=== PATIENT | male | born 1955 | race Caucasian/White ===

== ENCOUNTER 2020-06-09 15:30 | Outpatient (REF) | payer MEDICARE, MEDICAID, SELFPAY ==
[2020-06-09 16:41] LABS: MANUAL DIFF FLAG NO
[2020-06-09 16:49] LABS: Basophils Percent Auto 0.6 % (0-2); Eosinophils Absolute Auto 0.3 X10*3/uL (0.0-0.4); Hematocrit 46.9 % (42-52); Hemoglobin 15.8 g/dl (14.0-18.0); Imm Gran Abs Auto 0.02 X10*3/uL (0.00-0.03); Imm Gran Pct Auto 0.3 % (0.0-0.4); Lymphocytes Absolute Auto 2.4 X10*3/uL (1.2-4.9); Lymphocytes Percent Auto 36.3 % (20-40); Mean Corpuscular HGB Conc 33.7 g/dl (31.0-36.0); Mean Corpuscular Volume 92.1 fL (80-98); Mean Platelet Volume 11.7 fL (9.4-12.4); Monocytes Absolute Auto 0.5 X10*3/uL (0.1-1.2); Monocytes Percent Auto 7.2 % (2-11); Neutrophils Absolute Auto 3.4 X10*3/uL (2.0-8.3); Neutrophils Percent Auto 51.6 % (45-73); Platelet Count 186 X10*3/uL (160-400); Red Blood Count 5.09 X10*6/uL (4.60-5.80); Red Cell Distribution Width 12.6 % (11.0-16.0); White Blood Count 6.5 X10*3/uL (4.8-10.8)
[2020-06-09 16:53] LABS: Prothrombin Time 11.7 SEC (10.8-13.0)
[2020-06-09 17:06] LABS: Alanine Aminotransferase 125 U/L (0-40); Albumin Level 4.4 g/dL (3.5-5.0); Alkaline Phosphatase 70 U/L (39-117); Aspartate Amino Transferase 77 U/L (5-37); Bilirubin Direct 0.2 mg/dL (0.0-0.5); Bilirubin Total 0.3 mg/dL (0.0-1.0); Iron 89 mcg/dL (45-160); Percent Iron Saturation 28 % (15-50); Total Iron Binding Capacity 314 mcg/dL (228-428); Total Protein 7.1 g/dL (6.5-8.0); Unsaturated Iron Binding 225 ug/dL
[2020-06-09 17:28] LABS: Ferritin 595 ng/mL (20-250)
[2020-06-10 18:41] LABS: Alpha 1 Anti-trypsin 161 mg/dL (83-199)
[2020-06-12 08:59] LABS: HBS Num1 0.81 mIU/mL (0-7.99); HBc Num1 0.04 S/CO (0.00-0.79); HBsAGNum1 0.19 S/CO (0.00-0.99); Hepatitis B Core Antibody Nonreactive (Nonreactive); Hepatitis B Surface Antigen Negative (Negative); ~Hepatitis B Surface Antibody NONREACTIVE (Nonreactive)
[2020-06-12 09:46] LABS: ~HepC Num1 0.05 S/CO (0.00-0.79); ~Hepatitis C Antibody Nonreactive (Nonreactive)
[2020-06-12 16:32] LABS: Mitochondrial Antibodies NEGATIVE (NEGATIVE)
[2020-06-12 18:27] LABS: Anti Nuclear Antibody Screen NEGATIVE (NEGATIVE)
[2020-06-13 15:27] LABS: Smooth Muscle Antibody <20
== END 2020-06-09 15:31 | disposition home or self-care (01) ==
LOC: HO.LAB 15:30
PROVIDERS: Visit Provider Internal Medicine
DX: R94.5 Abnormal results of liver function studies (principal); K76.0 Fatty (change of) liver, not elsewhere classified
CPT/HCPCS: 36415; 80076; 82103; 82728; 83540; 85025; 85610; 86038; 86039; 86255; 86256; 86704; 86706; 86803; 87340

== ENCOUNTER 2021-01-10 13:24 | Outpatient (REF) | payer MEDICARE, MEDICAID, SELFPAY ==
[2021-01-10 14:37] LABS: Alanine Aminotransferase 62 U/L (0-40); Albumin Level 4.3 g/dL (3.5-5.0); Alkaline Phosphatase 79 U/L (39-117); Aspartate Amino Transferase 39 U/L (5-37); Bilirubin Direct 0.2 mg/dL (0.0-0.5); Bilirubin Total 0.4 mg/dL (0.0-1.0); Total Protein 7.1 g/dL (6.5-8.0)
== END 2021-01-10 13:25 | disposition home or self-care (01) ==
LOC: HO.LAB 13:24
PROVIDERS: PCP Family Medicine; Visit Provider Internal Medicine
DX: R94.5 Abnormal results of liver function studies (principal); K76.0 Fatty (change of) liver, not elsewhere classified
CPT/HCPCS: 36415; 80076

== ENCOUNTER 2021-06-05 12:35 | Outpatient (REF) | payer MEDICARE, MEDICAID, SELFPAY ==
[2021-06-05 13:22] LABS: Alanine Aminotransferase 106 U/L (0-40); Albumin Level 4.1 g/dL (3.5-5.0); Alkaline Phosphatase 80 U/L (39-117); Aspartate Amino Transferase 64 U/L (5-37); Bilirubin Direct < 0.2 mg/dL (0.0-0.5); Bilirubin Total 0.4 mg/dL (0.0-1.0); Total Protein 6.9 g/dL (6.5-8.0)
== END 2021-06-05 12:36 | disposition home or self-care (01) ==
LOC: HO.LAB 12:35
PROVIDERS: PCP Family Medicine; Visit Provider Internal Medicine
DX: R94.5 Abnormal results of liver function studies (principal); K76.0 Fatty (change of) liver, not elsewhere classified
CPT/HCPCS: 36415; 80076

== ENCOUNTER 2021-06-18 13:42 | Outpatient (REF) | payer MEDICARE, MEDICAID, SELFPAY ==
[2021-06-18 14:06] LABS: MANUAL DIFF FLAG NO
[2021-06-18 14:27] LABS: Basophils Absolute Auto 0.1 X10*3/uL (0.0-0.2); Basophils Percent Auto 0.6 % (0-2); Eosinophils Absolute Auto 0.3 X10*3/uL (0.0-0.4); Eosinophils Percent Auto 3.5 % (0-4); Hematocrit 50.6 % (42-52); Hemoglobin 16.8 g/dl (14.0-18.0); Imm Gran Abs Auto 0.03 X10*3/uL (0.00-0.03); Imm Gran Pct Auto 0.4 % (0.0-0.4); Lymphocytes Absolute Auto 3.2 X10*3/uL (1.2-4.9); Lymphocytes Percent Auto 37.4 % (20-40); Mean Corpuscular HGB Conc 33.2 g/dl (31.0-36.0); Mean Corpuscular Hemoglobin 30.5 pg (27.0-33.0); Mean Platelet Volume 11.6 fL (9.4-12.4); Monocytes Absolute Auto 0.7 X10*3/uL (0.1-1.2); Neutrophils Absolute Auto 4.2 X10*3/uL (2.0-8.3); Neutrophils Percent Auto 50.1 % (45-73); Platelet Count 210 X10*3/uL (160-400); Red Cell Distribution Width 12.9 % (11.0-16.0); White Blood Count 8.5 X10*3/uL (4.8-10.8)
[2021-06-18 14:31] LABS: Prothrombin Time 11.4 SEC (9.9-13.0)
[2021-06-18 14:33] LABS: Partial Thromboplastin Time 40.1 SEC (24.1-38.0)
[2021-06-18 14:48] LABS: Estimated Average Glucose 114 mg/dL; Hemoglobin A1C 150.2425 umol/L; Hemoglobin A1c % 5.6 %
[2021-06-18 15:00] LABS: Alanine Aminotransferase 107 U/L (0-40); Albumin Level 4.4 g/dL (3.5-5.0); Alkaline Phosphatase 86 U/L (39-117); Anion Gap 13 (12-20); Aspartate Amino Transferase 60 U/L (5-37); Bilirubin Direct 0.2 mg/dL (0.0-0.5); Bilirubin Total 0.4 mg/dL (0.0-1.0); Blood Urea Nitrogen 18 mg/dL (9-16); Calcium 10.4 mg/dL (8.4-10.2); Carbon Dioxide 29 mmol/L (22-29); Chloride 105 mmol/L (96-108); Estimated Glomerular Filt Rate > 60; Glucose Random 126 mg/dL (60-115); Potassium 5.1 mmol/L (3.3-5.1); Sodium 142 mmol/L (135-145); Total Protein 7.5 g/dL (6.5-8.0)
== END 2021-06-18 13:43 | disposition home or self-care (01) ==
LOC: HO.LAB 13:42
PROVIDERS: PCP Family Medicine; Visit Provider Internal Medicine
DX: R79.89 Other specified abnormal findings of blood chemistry (principal); K76.0 Fatty (change of) liver, not elsewhere classified
CPT/HCPCS: 36415; 80048; 80076; 83036; 85025; 85610; 85730

== ENCOUNTER 2021-06-25 07:49 | Day surgery (SDC) | payer MEDICARE, MEDICAID, SELFPAY ==
[2021-06-25] VITALS (7 sets, daily range): BP systolic 110–175; BP diastolic 57–96; PULSE 57–70; RESP 16–20; TEMP 36.2–36.4; O2SAT 95–99; BMI 34.7
--- NOTE | ~2021-06-25 | US_ITS ---
EXAMINATION: US GUIDED LIVER BIOPSY CLINICAL INFORMATION: Fatty liver. Elevated liver function tests. COMPARISON: Previous abdominal ultrasound November 2018 TECHNIQUE: Procedure and risks and benefits including bleeding and infection were discussed with the patient and informed consent was obtained. The right upper quadrant was prepped and draped in the usual sterile fashion. The skin and soft tissues were anesthetized with 1% lidocaine plain. Using ultrasound guidance and a coaxial system, access to the right lobe of the liver was obtained. Four 20-gauge core biopsies were obtained. There was no complication. Patient received Versed 1 mg and fentanyl 50 mcg intravenously during the procedure. Total sedation time was 13 minutes. Continuous hemodynamic monitoring was provided by a registered nurse under my direct supervision. FINDINGS: Liver echotexture is slightly increased. No fluid collection or hematoma post liver biopsy is seen. US/US biopsy liver IMPRESSION: Ultrasound-guided liver biopsy.
[2021-06-25 08:01] LABS: MANUAL DIFF FLAG NO
[2021-06-25 08:03] LABS: Basophils Percent Auto 0.6 % (0-2); Eosinophils Absolute Auto 0.3 X10*3/uL (0.0-0.4); Hematocrit 47.4 % (42-52); Hemoglobin 16.1 g/dl (14.0-18.0); Imm Gran Abs Auto 0.01 X10*3/uL (0.00-0.03); Imm Gran Pct Auto 0.1 % (0.0-0.4); Lymphocytes Absolute Auto 2.8 X10*3/uL (1.2-4.9); Lymphocytes Percent Auto 39.6 % (20-40); Mean Corpuscular Hemoglobin 31.6 pg (27.0-33.0); Mean Corpuscular Volume 92.9 fL (80-98); Mean Platelet Volume 11.7 fL (9.4-12.4); Monocytes Absolute Auto 0.6 X10*3/uL (0.1-1.2); Monocytes Percent Auto 7.9 % (2-11); Neutrophils Absolute Auto 3.3 X10*3/uL (2.0-8.3); Neutrophils Percent Auto 47.8 % (45-73); Platelet Count 163 X10*3/uL (160-400); Red Cell Distribution Width 12.7 % (11.0-16.0)
[2021-06-25 09:29] LABS: Partial Thromboplastin Time 40.3 SEC (24.1-38.0); Prothrombin Time 10.8 SEC (9.9-13.0)
--- NOTE | 2021-06-25 10:32 | HO.RADPN ---
RADIOLOGY Narrative Narrative: Rigth lobe liver biopsy using coaxial system. 4 20g specimens obtained.
[2021-06-25] MEDS: Lidocaine HCl 1 % MPF 5 ML VIAL SUBCUT (10:36)
== END 2021-06-25 12:45 | disposition home or self-care (01) ==
PROVIDERS: Radiology Diagnostic Radiology; PCP Family Medicine; Visit Provider Internal Medicine
DX: K76.0 Fatty (change of) liver, not elsewhere classified (principal); R79.89 Other specified abnormal findings of blood chemistry; K75.81 Nonalcoholic steatohepatitis (NASH); K74.00 Hepatic fibrosis, unspecified; I10 Essential (primary) hypertension; F41.1 Generalized anxiety disorder; Z79.899 Other long term (current) drug therapy
CPT/HCPCS: 36415; 47000; 76942; 85025; 85610; 85730; 88307; 88313; J2250; J3010

== ENCOUNTER 2021-12-11 13:39 | Outpatient (REF) | payer OTHER, MEDICAID, SELFPAY ==
[2021-12-11 14:48] LABS: Alanine Aminotransferase 64 U/L (0-40); Albumin Level 4.1 g/dL (3.5-5.0); Alkaline Phosphatase 86 U/L (39-117); Aspartate Amino Transferase 58 U/L (5-37); Bilirubin Direct 0.2 mg/dL (0.0-0.5); Bilirubin Total 0.4 mg/dL (0.0-1.0); Total Protein 7.2 g/dL (6.5-8.0)
== END 2021-12-11 13:40 | disposition home or self-care (01) ==
LOC: HO.LAB 13:39
PROVIDERS: PCP Family Medicine; Visit Provider Internal Medicine
DX: R79.89 Other specified abnormal findings of blood chemistry (principal); K76.0 Fatty (change of) liver, not elsewhere classified
CPT/HCPCS: 36415; 80076

== ENCOUNTER 2022-03-06 13:14 | Outpatient (REF) | payer OTHER, SELFPAY ==
[2022-03-06 14:41] LABS: Alanine Aminotransferase 63 U/L (0-40); Albumin Level 4.2 g/dL (3.5-5.0); Alkaline Phosphatase 85 U/L (39-117); Aspartate Amino Transferase 42 U/L (5-37); Bilirubin Direct 0.2 mg/dL (0.0-0.5); Bilirubin Total 0.5 mg/dL (0.0-1.0); Total Protein 7.1 g/dL (6.5-8.0)
== END 2022-03-06 13:15 | disposition home or self-care (01) ==
LOC: HO.LAB 13:14
PROVIDERS: Visit Provider Internal Medicine
DX: R79.89 Other specified abnormal findings of blood chemistry (principal); K76.0 Fatty (change of) liver, not elsewhere classified
CPT/HCPCS: 36415; 80076

== ENCOUNTER 2022-06-12 14:06 | Outpatient (REF) | payer OTHER, SELFPAY ==
[2022-06-12 15:12] LABS: Alanine Aminotransferase 65 U/L (0-40); Albumin Level 4.2 g/dL (3.5-5.0); Alkaline Phosphatase 92 U/L (39-117); Aspartate Amino Transferase 43 U/L (5-37); Bilirubin Direct < 0.2 mg/dL (0.0-0.5); Bilirubin Total 0.2 mg/dL (0.0-1.0); Total Protein 7.5 g/dL (6.5-8.0)
== END 2022-06-12 14:07 | disposition home or self-care (01) ==
LOC: HO.LAB 14:06
PROVIDERS: PCP Family Medicine; Visit Provider Internal Medicine
DX: K76.0 Fatty (change of) liver, not elsewhere classified (principal); R79.89 Other specified abnormal findings of blood chemistry
CPT/HCPCS: 36415; 80076

== ENCOUNTER 2022-12-10 13:31 | Outpatient (REF) | payer OTHER, SELFPAY ==
[2022-12-10 13:48] LABS: MANUAL DIFF FLAG NO
[2022-12-10 14:06] LABS: Basophils Absolute Auto 0.1 X10*3/uL (0.0-0.2); Basophils Percent Auto 0.9 % (0-2); Eosinophils Absolute Auto 0.2 X10*3/uL (0.0-0.4); Eosinophils Percent Auto 3.2 % (0-4); Hematocrit 44.4 % (42.0-52.0); Hemoglobin 15.2 g/dl (14.0-18.0); Imm Gran Abs Auto 0.05 X10*3/uL (0.00-0.03); Imm Gran Pct Auto 0.7 % (0.0-0.4); Lymphocytes Absolute Auto 2.8 X10*3/uL (1.2-4.9); Lymphocytes Percent Auto 40.9 % (20-40); Mean Corpuscular HGB Conc 34.2 g/dl (31.0-36.0); Mean Corpuscular Hemoglobin 31.1 pg (27.0-33.0); Mean Platelet Volume 11.2 fL (9.4-12.4); Monocytes Absolute Auto 0.5 X10*3/uL (0.1-1.2); Neutrophils Absolute Auto 3.2 x10*3/uL (2.0-8.3); Neutrophils Percent Auto 47.3 % (45-73); Platelet Count 185 X10*3/uL (160-400); Red Blood Count 4.88 X10*6/uL (4.60-5.80); White Blood Count 6.8 X10*3/uL (4.8-10.8)
[2022-12-10 14:33] LABS: Alanine Aminotransferase 32 U/L (0-40); Albumin Level 4.1 g/dL (3.5-5.0); Alkaline Phosphatase 71 U/L (39-117); Aspartate Amino Transferase 36 U/L (5-37); Bilirubin Direct 0.1 mg/dL (0.0-0.5); Bilirubin Total 0.4 mg/dL (0.0-1.0); Total Protein 6.6 g/dL (6.5-8.0)
[2022-12-12 13:03] LABS: Alpha Fetoprotein 3.9 ng/mL (<6.1)
[2022-12-16 00:44] LABS: FIB-ALT 25 U/L (9-46); FIB-Alpha-2-Macroglobulin 267 mg/dL (106-279); FIB-Apolipoprotein A1 162 mg/dL (94-176); FIB-GGT 16 U/L (3-70); FIB-Haptoglobin 44 mg/dL (43-212); FIB-Total Bilirubin 0.3 mg/dL (0.2-1.2); Liver Fibrosis Score 0.39; Liver Fibrosis Stage F1-F2; Nec Inflam Act Grade A0; Nec Inflam Act Score 0.13
== END 2022-12-10 13:32 | disposition home or self-care (01) ==
LOC: HO.LAB 13:31
PROVIDERS: Visit Provider Internal Medicine
DX: K76.0 Fatty (change of) liver, not elsewhere classified (principal); R94.5 Abnormal results of liver function studies; K74.00 Hepatic fibrosis, unspecified
CPT/HCPCS: 36415; 80076; 81596; 82105; 85025; 85610

== ENCOUNTER 2023-01-10 10:00 | Outpatient (REF) | payer OTHER, SELFPAY ==
--- NOTE | ~2023-01-10 | US_ITS ---
EXAMINATION: US COMPLETE ABDOMEN WITH LIVER ELASTOGRAPHY CLINICAL INFORMATION: COMPARISON: None available. TECHNIQUE: Real-time imaging of the abdominal viscera. Noninvasive ultrasound liver fibrosis assessment is performed using Al ElastPQ point quantification shear wave elastography (2D-SWE) with a C5-2 MHz transducer. Multiple elastography samples are obtained. FINDINGS: PANCREAS: Not well visualized due to bowel gas ABDOMINAL AORTA: Not well visualized due to bowel gas INFERIOR VENA CAVA: Visualized portions are normal. LIVER: Liver echotexture is increased. Liver size and contour is normal. No focal lesion or intrahepatic biliary duct dilatation. The right lobe measures 13.6 cm in length. The left lobe measures 11.6 cm in length. Portal flow is normal/hepatopedal Shear wave liver elastography median stiffness is 2.03 m/s (reference: normal median stiffness is 1.3 m/s or less). IQR/median stiffness to assess sampling precision is 0.08 (reference: good quality data set is IQR/median stiffness of 0.15 or less). GALLBLADDER: Normal. The gallbladder is physiologically distended without evidence of stones, sludge, polyps, wall thickening or pericholecystic fluid. COMMON BILE DUCT: Normal in caliber measuring 0.5 cm in diameter. RIGHT KIDNEY: Normal. No hydronephrosis. No renal calculi or focal parenchymal lesions. The kidney measures 10 cm in maximum dimension. LEFT KIDNEY: There is a 7 x 9 mm cyst in the midpole. No hydronephrosis. No renal calculi or other focal parenchymal lesions. The kidney measures 10.6 cm in maximum dimension. SPLEEN: Normal. The spleen measures 9 cm in maximum dimension. FREE FLUID: None. US/US abdomen comp w elastography IMPRESSION: 1. Impression: Echogenic liver. Small left renal cyst. Limited visualization of the pancreas and aorta. 2. Liver elastography: Adequate liver sampling. Increased liver stiffness suggestive of advanced chronic liver disease. REFERENCE: Society of Radiologists in Ultrasound Liver Stiffness Thresholds (2020): LIVER STIFFNESS THRESHOLDS: *Liver Stiffness equal or less than 1.3 m/s: High probability of being normal. *Liver Stiffness less than 1.7 m/s: In the absence of other known clinical signs, rules out compensated advanced chronic liver disease. *Liver Stiffness 1.7-2.1 m/s: Suggestive of compensated advanced chronic liver disease but need further test for confirmation. *Liver Stiffness over 2.1 m/s: Rules in compensated advanced chronic liver disease. *Liver Stiffness over 2.4 m/s: Suggestive of clinically significant portal hypertension. QUALITY OF DATA SET: *IQR/Median value equal or less than 0.15 implies a quality data set. *IQR/Median value over 0.15 implies a poor quality data set. SIGNIFICANT CHANGE FROM PRIOR EXAM: Significant change if liver stiffness measurement is 10% or greater from prior exam. OTHER CONSIDERATIONS: The stage of liver fibrosis may be overestimated in the setting of acute hepatitis, liver inflammation, elevated liver function tests, hepatic vascular congestion, obstructive cholestasis, non-fasting state, and infiltrative diseases such as amyloidosis and lymphoma. In some patients with NAFLD, the liver stiffness thresholds for compensated advanced chronic liver disease may be lower. In causes other than viral hepatitis and NAFLD, liver stiffness thresholds are not well established.
== END 2023-01-10 10:01 | disposition home or self-care (01) ==
LOC: HO.US 10:00
PROVIDERS: PCP Internal Medicine; Visit Provider Internal Medicine
DX: K76.0 Fatty (change of) liver, not elsewhere classified (principal); R94.5 Abnormal results of liver function studies; K74.00 Hepatic fibrosis, unspecified
CPT/HCPCS: 76705; 76981

== ENCOUNTER 2023-09-30 13:56 | Outpatient (REF) | payer OTHER, SELFPAY ==
[2023-09-30 14:18] LABS: MANUAL DIFF FLAG NO
[2023-09-30 15:15] LABS: Basophils Absolute Auto 0.1 X10*3/uL (0.0-0.2); Basophils Percent Auto 0.7 % (0-2); Eosinophils Absolute Auto 0.2 X10*3/uL (0.0-0.4); Hematocrit 44.5 % (42.0-52.0); Hemoglobin 14.9 g/dl (14.0-18.0); Imm Gran Abs Auto 0.02 X10*3/uL (0.00-0.03); Imm Gran Pct Auto 0.3 % (0.0-0.4); Lymphocytes Absolute Auto 2.8 X10*3/uL (1.2-4.9); Mean Corpuscular HGB Conc 33.5 g/dl (31.0-36.0); Mean Corpuscular Hemoglobin 31.1 pg (27.0-33.0); Mean Corpuscular Volume 92.9 fL (80.0-98.0); Mean Platelet Volume 11.7 fL (9.4-12.4); Monocytes Absolute Auto 0.5 X10*3/uL (0.1-1.2); Monocytes Percent Auto 7.3 % (2-11); Neutrophils Absolute Auto 3.5 x10*3/uL (2.0-8.3); Neutrophils Percent Auto 49.7 % (45-73); Platelet Count 163 X10*3/uL (160-400); Red Blood Count 4.79 X10*6/uL (4.60-5.80); White Blood Count 7.1 X10*3/uL (4.8-10.8)
[2023-09-30 15:47] LABS: C Reactive Protein 2.38 mg/dL (< or = 0.50)
[2023-09-30 16:38] LABS: Erythrocyte Sedimentation Rate 22 MM/HR (0-15)
== END 2023-09-30 13:57 | disposition home or self-care (01) ==
LOC: HO.LAB 13:56
PROVIDERS: PCP Family Medicine; Visit Provider Family Medicine
DX: R10.32 Left lower quadrant pain (principal)
CPT/HCPCS: 36415; 85025; 85652; 86140

== ENCOUNTER 2023-12-24 14:00 | Outpatient (REF) | payer OTHER, SELFPAY ==
[2023-12-24 14:12] LABS: MANUAL DIFF FLAG NO
[2023-12-24 15:17] LABS: Basophils Absolute Auto 0.1 X10*3/uL (0.0-0.2); Basophils Percent Auto 0.7 % (0-2); Eosinophils Absolute Auto 0.4 X10*3/uL (0.0-0.4); Eosinophils Percent Auto 4.4 % (0-4); Hematocrit 46.8 % (42.0-52.0); Hemoglobin 15.9 g/dl (14.0-18.0); Imm Gran Abs Auto 0.02 X10*3/uL (0.00-0.03); Imm Gran Pct Auto 0.2 % (0.0-0.4); Lymphocytes Absolute Auto 2.5 X10*3/uL (1.2-4.9); Lymphocytes Percent Auto 30.6 % (20-40); Mean Corpuscular Hemoglobin 31.2 pg (27.0-33.0); Mean Corpuscular Volume 91.9 fL (80.0-98.0); Mean Platelet Volume 11.4 fL (9.4-12.4); Monocytes Absolute Auto 0.5 X10*3/uL (0.1-1.2); Monocytes Percent Auto 6.3 % (2-11); Neutrophils Absolute Auto 4.7 x10*3/uL (2.0-8.3); Neutrophils Percent Auto 57.8 % (45-73); Platelet Count 210 X10*3/uL (160-400); Red Blood Count 5.09 X10*6/uL (4.60-5.80); Red Cell Distribution Width 12.8 % (11.0-16.0); White Blood Count 8.2 X10*3/uL (4.8-10.8)
[2023-12-24 15:22] LABS: INTERNATIONAL NORM RATIO 0.9 (0.9-1.1); Prothrombin Time 11.1 SEC (11.1-13.3)
[2023-12-24 15:40] LABS: Alanine Aminotransferase 17 U/L (0-40); Albumin Level 4.5 g/dL (3.5-5.0); Alkaline Phosphatase 73 U/L (39-117); Aspartate Amino Transferase 22 U/L (5-37); Bilirubin Direct 0.1 mg/dL (0.0-0.5); Bilirubin Total 0.4 mg/dL (0.0-1.0); Total Protein 7.9 g/dL (6.5-8.0)
[2023-12-25 13:33] LABS: Alpha Fetoprotein 2.8 ng/mL (<6.1)
[2024-01-03 18:19] LABS: FIB-ALT 15 U/L (9-46); FIB-Alpha-2-Macroglobulin 308 mg/dL (106-279); FIB-Apolipoprotein A1 184 mg/dL (94-176); FIB-GGT 16 U/L (3-70); FIB-Haptoglobin 52 mg/dL (43-212); FIB-Total Bilirubin 0.4 mg/dL (0.2-1.2); Liver Fibrosis Score 0.43; Liver Fibrosis Stage F1-F2; Nec Inflam Act Grade A0; Nec Inflam Act Score 0.06
== END 2023-12-24 14:01 | disposition home or self-care (01) ==
LOC: HO.LAB 14:00
PROVIDERS: PCP Family Medicine; Visit Provider Internal Medicine
DX: K76.0 Fatty (change of) liver, not elsewhere classified (principal); K74.00 Hepatic fibrosis, unspecified
CPT/HCPCS: 36415; 80076; 81596; 82105; 85025; 85610

== ENCOUNTER 2024-01-07 07:37 | Outpatient (REF) | payer OTHER, SELFPAY ==
--- NOTE | ~2024-01-07 | US_ITS ---
EXAMINATION: US COMPLETE ABDOMEN WITH LIVER ELASTOGRAPHY CLINICAL INFORMATION: Fatty liver and hepatic fibrosis. COMPARISON: Abdominal ultrasound dated 01/10/2023. TECHNIQUE: Real-time imaging of the abdominal viscera. Noninvasive ultrasound liver fibrosis assessment is performed using Al ElastPQ point quantification shear wave elastography (2D-SWE) with a C5-2 MHz transducer. Multiple elastography samples are obtained. FINDINGS: PANCREAS: Largely obscured by overlapping bowel gas. ABDOMINAL AORTA: The proximal and distal aortic segments are normal in caliber. The mid segment is obscured by overlapping bowel gas. INFERIOR VENA CAVA: Visualized portions are normal. LIVER: The liver demonstrates normal size, contour and slightly increased echogenicity. No focal lesion or intrahepatic biliary duct dilatation. The right lobe measures 14.1 cm in length. The left lobe measures 12.2 cm in length. Portal flow is towards the liver (hepatopetal). Shear wave liver elastography median stiffness is 1.51 m/s (reference: normal median stiffness is 1.3 m/s or less). IQR/median stiffness to assess sampling precision is 0.06 (reference: good quality data set is IQR/median stiffness of 0.15 or less). GALLBLADDER: Normal. The gallbladder is physiologically distended without evidence of stones, sludge, polyps, wall thickening or pericholecystic fluid. COMMON BILE DUCT: Normal in caliber measuring 0.6 cm in diameter. RIGHT KIDNEY: Normal. No hydronephrosis. No renal calculi or focal parenchymal lesions. The kidney measures 10.4 cm in maximum dimension. LEFT KIDNEY: At the interpolar aspect, a 1.0 cm benign, simple cyst is seen. At the lower pole, a 1.8 cm benign, simple cyst is seen. These require no imaging follow-up. No hydronephrosis. No renal calculi or focal parenchymal lesions. The kidney measures 11.1 cm in maximum dimension. SPLEEN: Normal. The spleen measures 9.6 cm in maximum dimension. FREE FLUID: None. US/US abdomen comp w elastography IMPRESSION: 1. There is slight generalized increase in hepatic echotexture, consistent with fatty infiltration or hepatocellular disease. Please correlate clinically. No focal hepatic mass or intrahepatic biliary dilatation is seen. 2. Liver elastography: In the absence of other known clinical signs, measurements rule out compensated advanced chronic liver disease. If there are known clinical signs, further testing may be needed for confirmation. 3. Technically limited ultrasound examination of the pancreas and the abdominal great vessels. REFERENCE: Society of Radiologists in Ultrasound Liver Stiffness Thresholds (2020): LIVER STIFFNESS THRESHOLDS: *Liver Stiffness equal or less than 1.3 m/s: High probability of being normal. *Liver Stiffness less than 1.7 m/s: In the absence of other known clinical signs, rules out compensated advanced chronic liver disease. *Liver Stiffness 1.7-2.1 m/s: Suggestive of compensated advanced chronic liver disease but need further test for confirmation. *Liver Stiffness over 2.1 m/s: Rules in compensated advanced chronic liver disease. *Liver Stiffness over 2.4 m/s: Suggestive of clinically significant portal hypertension. QUALITY OF DATA SET: *IQR/Median value equal or less than 0.15 implies a quality data set. *IQR/Median value over 0.15 implies a poor quality data set. SIGNIFICANT CHANGE FROM PRIOR EXAM: Significant change if liver stiffness measurement is 10% or greater from prior exam. OTHER CONSIDERATIONS: The stage of liver fibrosis may be overestimated in the setting of acute hepatitis, liver inflammation, elevated liver function tests, hepatic vascular congestion, obstructive cholestasis, non-fasting state, and infiltrative diseases such as amyloidosis and lymphoma. In some patients with NAFLD, the liver stiffness thresholds for compensated advanced chronic liver disease may be lower. In causes other than viral hepatitis and NAFLD, liver stiffness thresholds are not well established.
== END 2024-01-07 07:38 | disposition home or self-care (01) ==
LOC: HO.US 07:37
PROVIDERS: PCP Family Medicine; Visit Provider Internal Medicine
DX: K76.0 Fatty (change of) liver, not elsewhere classified (principal); K74.00 Hepatic fibrosis, unspecified
CPT/HCPCS: 76700; 76981

== ENCOUNTER 2024-12-29 13:50 | Outpatient (REF) | payer OTHER, SELFPAY ==
[2024-12-29 14:13] LABS: MANUAL DIFF FLAG NO
[2024-12-29 14:50] LABS: Basophils Absolute Auto 0.1 X10*3/uL (0.0-0.2); Basophils Percent Auto 0.8 % (0-2); Eosinophils Absolute Auto 0.2 X10*3/uL (0.0-0.4); Eosinophils Percent Auto 3.1 % (0-4); Hematocrit 45.1 % (42.0-52.0); Hemoglobin 15.1 g/dl (14.0-18.0); Imm Gran Abs Auto 0.02 X10*3/uL (0.00-0.03); Imm Gran Pct Auto 0.3 % (0.0-0.4); Lymphocytes Absolute Auto 2.3 X10*3/uL (1.2-4.9); Lymphocytes Percent Auto 35.2 % (20-40); Mean Corpuscular HGB Conc 33.5 g/dl (31.0-36.0); Mean Corpuscular Hemoglobin 30.7 pg (27.0-33.0); Mean Corpuscular Volume 91.7 fL (80.0-98.0); Mean Platelet Volume 11.4 fL (9.4-12.4); Monocytes Absolute Auto 0.4 X10*3/uL (0.1-1.2); Monocytes Percent Auto 6.8 % (2-11); Neutrophils Absolute Auto 3.5 x10*3/uL (2.0-8.3); Neutrophils Percent Auto 53.8 % (45-73); Platelet Count 190 X10*3/uL (160-400); Red Blood Count 4.92 X10*6/uL (4.60-5.80); Red Cell Distribution Width 12.7 % (11.0-16.0); White Blood Count 6.5 X10*3/uL (4.8-10.8)
[2024-12-29 14:54] LABS: INTERNATIONAL NORM RATIO 0.9 (0.9-1.1); Prothrombin Time 10.7 SEC (10.9-12.4)
--- OUTSIDE RECORDS SUMMARY | 2024-12-29 15:06 | XMS_ITS | Clinical Summary ---
Author Organization [facility] Address [address] [place] [address] Care Team Providers Care Inventory Manager Name Role Phone Unavailable Primary Care Provider Unavailabl e Allergies No known active allergies Medications Multiple Vitamins-Minera ls (MULTIVITAMIN & MINERAL PO) Active lisinopril 40 MG tablet Take 1 tablet by mouth at bed time. Active traMADol (Ultram) 50 MG tablet Take 50 mg by mouth every 12 (twelve) hours if needed. 03/14/2023 Active ursodiol (Actigall) 500 MG tablet TAKE TWO TABLETS BY MOUTH EVERY MORNING & TAKE ONE TABLET BY MOUTH EVERY EVENING 03/24/2023 Active amLODIPine (Norvasc) 5 MG tablet Take 5 mg by mouth at bedtime. Active Encounters Date Type Department Care Team Description 11/30/2024 11:00 AM EDT Office Visit [facility] [address] [place] [address] [place] Periodontal disease (Primary Dx); Dental calculus; Periodontosis; Extruded tooth; Tipped teeth from Last 3 Months Social History Tobacco Use Types Packs/Day Years Used Date Smoking Tobacco: Never Passive Smoke Exposure: Never Smokeless Tobacco: Never Tobacco Cessation:Counseling Given: Not Answered Alcohol Use Standard Drinks/Week Comments Never 0 (1 standard drink = 0.6 oz pur e alcohol) Sex and Gender Information Value Date Recorded Sex Assigned at Male 07/01/2022 10:23 AM EDT Legal Sex Male 10:23 AM EDT Gender Identity Male 11/15/2022 9:15 AM EDT Sexual Orientation Straight 12/12/2022 1: 57 PM EDT Last Filed Vital Signs Vital Sign Reading Time Taken Comments Blood Pressure 138/82 11/30/2024 10:35 AM EDT Pulse 80 06/01/2024 10:46 AM EDT Temperature - - Respiratory Rate - - Oxygen Saturation - - Inhaled Oxygen Concentration - - Weight - - Height - - Body Mass Index - - Plan of Treatment Upcoming Encounters Date Type Department Care Team (Late st Contact Info) Description 01/14/2025 1:30 PM EDT Office Visit [facility] [address] [place] [address] [place], RaminJESUS [address], [place] [id number] Health Maintenance Due Date Last Done Comments CT Colonography 1955 Colonoscopy 1955 Colorectal Cancer Screening 1955 Depression Screening 1955 FIT DNA/Cologuard 1955 FIT 1955 FOBT 1955 Lipid Panel 1955 SDOH Screening 1955 Sigmoidoscopy 1955 Alcohol/Substance Use Screening 1968 Hepatitis C Screening 1974 Hepatitis A Vaccines (1 of 2 - Risk 2-dose series) 12/19/1975 Hepatitis B Vaccines (1 of 3 - Risk 3-dose series) 2016 RSV Patients and Patients Aged 60 years or older (1 - Risk 60-74 years 1-dose series) 2016 Dental Oral Exam 06/02/2025 11/30/2024, 12/12/2022 Dental Prophylaxis 06/02/2025 11/30/2024 Tobacco Screening 11/30/2025 11/30/2024 Dental X-Ray: Bitewings 12/01/2025 12/01/19 25, 06/01/2024, 05/28/2024, Additional history exists Dental X-Ray: Full Mouth 12/13/2025 12/12/2022 DTaP/Tdap/Td Vaccines (2 - Td or Tdap) 11/11/2034 11/11/2024 Pneumococcal Vaccine: 50+ Years Completed 06/03/2022 Zoster Vaccines Completed 02/02/2024, 08/06/2023 COVID-19 Vaccine Completed 05/13/2024, 01/2023, 07/23/2022, Additional history exists Influenza Vaccine Completed 05/13/2024, , 06/03/2022, Additional history exists HIB Vaccines Aged Out No longer eligi ble based on patient's age to complete this topic HPV Vaccines Aged Out No longer eligi ble based on patient's age to complete this topic IPV Vaccines Aged Out No longer eligi ble based on patient's age to complete this topic Meningococcal Vaccine Aged Out No sylvia savannah eligible based on patient's age to complete this topic RSV under 20 months Aged Out No longe r eligible based on patient's age to complete this topic Rotavirus Vaccines Aged Out No longer eligible based on patient's age to complete this topic Procedures Procedure Name Priority Date/Time Associated Diagnosis Comments COMPREHENSIVE PERIODONTAL EVALUATION - NEW OR ESTABLISHED PATIENT Routine 11/30/2024 11:00 AM EDT PERIODIC ORAL EVALUATION - ESTABLISHED PATIENT Routine 11/30/2024 11:00 AM EDT TOPICAL APPLICATION OF FLUORIDE VARNISH Routine 11/30/2024 11:00 AM EDT Periodontal disease Dental calculus CASE PRESENTATION, DETAILED AND EXTENSIVE TREATMENT PLANNING Routine 11/30/2024 11:00 AM EDT Periodontal disease Dental calculus ORAL HYGIENE INSTRUCTIONS Routine 2024 11:00 AM EDT Periodontal disease Dental calculus 26,27 INTRAORAL - PERIAPICAL EACH ADDITIONAL RADIOGRAPHIC IMAGE Routine 11/30/2024 11:00 AM EDT Periodontal disease Dental calculus 22,23 INTRAORAL - PERIAPICAL EACH ADDITIONAL RADIOGRAPHIC IMAGE Routine 11/30/2024 11:00 AM EDT Periodontal disease Dental calculus 8,9 INTRAORAL - PERIAPICAL FIRST RADIOGRAPHIC IMAGE Routine 11/30/2024 11:00 AM EDT Periodontal disease Dental calculus BITEWINGS - 4 RADIOGRAPHIC IMAGES Routine 11/30/2024 11:00 AM EDT Periodontal disease Dental calculus PROPHYLAXIS - ADULT Routine 11/30/2024 1 1:00 AM EDT Periodontal disease Dental calculus INTRAORAL - COMPLETE SERIES OF RADIOGRAPHIC IMAGES Routine 12/12/2022 2:00 PM EDT from Last 3 Months or Most Recently Relevant to Health Maintenance Insurance [facility]
--- OUTSIDE RECORDS SUMMARY | 2024-12-29 15:06 | XMS_ITS | Encounter Summary ---
Author Organization [facility] Address [address] [place] [address] Care Team Providers Care Gyroscopic Engineering Technician Name Role Phone Unavailable Primary Care Provider Unavailabl e Encounter Details Date Type Department Care Team (Latest Contact Info) Description 04/22/2019 Abstract [facility], Provider, DDS Social History Tobacco Use Types Packs/Day Years Used Date Smoking Tobacco: Never Assessed Sex and Gender Information Value Date Recorded Sex Assigned at Male 07/01/2022 10:23 AM EDT Legal Sex Male 10:23 AM EDT Gender Identity Male 11/15/2022 9:15 AM EDT Sexual Orientation Straight 12/12/2022 1: 57 PM EDT documented as of this encounter Plan of Treatment Upcoming Encounters Date Type Department Care Team (Late st Contact Info) Description 01/14/2025 1:30 PM EDT Office Visit [facility] [address] [place] [address] Ramin Reilly DDS [address] [place] [address] documented as of this encounter Visit Diagnoses Not on filedocumented in this encounter
[2024-12-29 15:14] LABS: Alanine Aminotransferase 27 U/L (0-40); Albumin Level 4.4 g/dL (3.5-5.0); Alkaline Phosphatase 73 U/L (39-117); Aspartate Amino Transferase 27 U/L (5-37); Bilirubin Direct 0.1 mg/dL (0.0-0.5); Bilirubin Total 0.4 mg/dL (0.0-1.0); Total Protein 7.2 g/dL (6.5-8.0)
[2024-12-31 11:03] LABS: Alpha Fetoprotein 3.7 ng/mL (<6.1)
[2025-01-03 01:28] LABS: FIB-ALT 17 U/L (9-46); FIB-Alpha-2-Macroglobulin 271 mg/dL (106-279); FIB-Apolipoprotein A1 179 mg/dL (94-176); FIB-GGT 14 U/L (3-70); FIB-Haptoglobin 50 mg/dL (43-212); FIB-Total Bilirubin 0.3 mg/dL (0.2-1.2); Liver Fibrosis Score 0.33; Liver Fibrosis Stage F1-F2; Nec Inflam Act Grade A0; Nec Inflam Act Score 0.06; Reference ID 5467996
== END 2024-12-29 13:51 | disposition home or self-care (01) ==
LOC: HO.LAB 13:50
PROVIDERS: PCP Internal Medicine; Visit Provider Internal Medicine
DX: K76.0 Fatty (change of) liver, not elsewhere classified (principal); K74.00 Hepatic fibrosis, unspecified; R94.5 Abnormal results of liver function studies
CPT/HCPCS: 36415; 80076; 81596; 82105; 85025; 85610

== ENCOUNTER 2025-02-11 08:40 | Outpatient (REF) | payer OTHER, SELFPAY ==
--- NOTE | ~2025-02-11 | US_ITS ---
EXAMINATION: US COMPLETE ABDOMEN WITH LIVER ELASTOGRAPHY CLINICAL INFORMATION: Liver fibrosis. COMPARISON: None available. TECHNIQUE: Real-time imaging of the abdominal viscera. Noninvasive ultrasound liver fibrosis assessment is performed using Siemens AP chest shear wave elastography (aPSW) with a C5-2 MHz transducer. Multiple elastography samples are obtained. FINDINGS: PANCREAS: The visualized pancreatic head and body are normal in appearance. The remainder of the pancreas is obscured from visualization by the overlying bowel gas. ABDOMINAL AORTA: No aortic aneurysm is seen. INFERIOR VENA CAVA: Visualized portions are normal. LIVER: Liver is normal in size. There is diffusely increased hepatic echogenicity. There is no focal lesion identified. There is no intra or extrahepatic biliary dilatation. The right lobe measures 16.3 cm in length. The left lobe measures 12.2 cm in length. Portal flow is towards the liver (hepatopetal). Shear wave liver elastography median stiffness is 1.05 m/s (reference: normal median stiffness is 1.2 m/s or less). (Previously 1.51 m/s, performed on EPIQ 5G Al system, and values may vary among manufacturers) IQR/median stiffness to assess sampling precision is 0.31 (reference: good quality data set is IQR/median stiffness of 0.3 or less). GALLBLADDER: The gallbladder is physiologically distended without evidence of stones, sludge, polyps, wall thickening or pericholecystic fluid. COMMON BILE DUCT: Normal in caliber measuring 0.3 cm in diameter. RIGHT KIDNEY: No hydronephrosis. No renal calculi or focal parenchymal lesions. The kidney measures 10.8 cm in maximum dimension. LEFT KIDNEY: No hydronephrosis. No renal calculi or focal parenchymal lesions. The kidney measures 10.8 cm in maximum dimension. There are 2 mid to lower pole simple cysts, larger measuring 2.1 cm, and the smaller measuring 1.2 cm. SPLEEN: Unremarkable. The spleen measures 8.8 cm in maximum dimension. FREE FLUID: None seen. US/US abdomen comp w elastography IMPRESSION: 1. Diffusely increased hepatic echogenicity, without focal lesions seen. This is likely reflective of hepatic steatosis. No biliary dilatation. 2. Liver elastography: Measurements are consistent with a high probability of normal liver stiffness. When compared with prior exam, there is a statistically significant decrease in liver stiffness (decrease at least 10%). Please note, the prior was performed on EPIQ 5G Al system and values may vary among manufacturers) 3. There are 2 left renal simple cysts. 4. Remainder the exam is normal. REFERENCE: Society of Radiologists in Ultrasound Liver Stiffness Thresholds (2020): LIVER STIFFNESS THRESHOLDS: *Liver Stiffness equal or less than 1.2 m/s: High probability of being normal. *Liver Stiffness less than 1.5 m/s: In the absence of other known clinical signs, rules out compensated advanced chronic liver disease. *Liver Stiffness less than 1.7 m/s: Suggestive of compensated advanced chronic liver disease but need further test for confirmation. *Liver Stiffness less than are equal to 1.7 cm/s: Rules in compensated advanced chronic liver disease. QUALITY OF DATA SET: *IQR/Median value equal or less than 0.30 implies a quality data set. *IQR/Median value over 0.30 implies a poor quality data set. SIGNIFICANT CHANGE FROM PRIOR EXAM: Significant change if liver stiffness measurement is 10% or greater from prior exam. OTHER CONSIDERATIONS: The stage of liver fibrosis may be overestimated in the setting of acute hepatitis, liver inflammation, elevated liver function tests, hepatic vascular congestion, obstructive cholestasis, non-fasting state, and infiltrative diseases such as amyloidosis and lymphoma. In some patients with NAFLD, the liver stiffness thresholds for compensated advanced chronic liver disease may be lower. In causes other than viral hepatitis and NAFLD, liver stiffness thresholds are not well established. Electronically signed by: Thom Damico MD 02/11/2025 09:39 AM EDT
--- OUTSIDE RECORDS SUMMARY | 2025-02-11 08:51 | XMS_ITS ---
Author Organization [facility] Address [address] [place] [address] Care Team Providers Care International Trade Compliance Manager Name Role Phone Yvon MIRANDA, Rocael Primary Care Provider Unavailab Seamus Alegria [phone] REASON FOR VISIT Patient presents today for fatty liver Encounters Encounter Location Date Provider Diagnosis [facility] [address] [place] [address] 12/12/2023 Seamus Stein Plan Of Treatment Next Appt Details Provider Name:Seamus Stein , 12/30/2025 01:00:00 PM, [address], [address], [place], [address], Progress Notes * KYRIE MACKEY MDOB:1955 (69 yo M)Acc No.[id number]:12/12/2023 Progress Notes Patient:?KYRIE MACKEY Provider:?Seamus Stein MD :1955???Age:67 Y???Sex:Male Mp e:12/12/2023 Address:[address] [place], [place] [id number] Pcp:Rocael Sanz MD Subjective: * Chief Complaints: * ???1. Patient presents today for fatty liver. * Medical History:? Objective: * Vitals:? Assessment: Plan: * Treatment: * * The named appointment provid er may or may not be the originator of this progress note, and it is not deemed complete until electronically signed by the appointment provider. Sign off status: Pending * Provider:?Seamus Stein MD Date:? 024 Generated for Joseph singh/Linda/Ron on:?02/11/2025 08:51 AM EDT
== END 2025-02-11 08:41 | disposition home or self-care (01) ==
LOC: HO.US 08:40
PROVIDERS: Visit Provider Internal Medicine
DX: K76.0 Fatty (change of) liver, not elsewhere classified (principal); R94.5 Abnormal results of liver function studies; K74.00 Hepatic fibrosis, unspecified
CPT/HCPCS: 76700; 76981

== ENCOUNTER → 2025-02-11 09:04 | Outpatient (BNV) | payer OTHER, SELFPAY | PROVIDERS: Visit Provider Radiology Diagnostic Radiology | DX: K76.0 Fatty (change of) liver, not elsewhere classified (principal) | CPT/HCPCS: 76700 ==

== ENCOUNTER 2025-06-28 10:00 | Outpatient (REF) | payer OTHER, SELFPAY ==
[2025-06-28 11:07] LABS: MANUAL DIFF FLAG NO
[2025-06-28 11:40] LABS: Hematocrit 47.1 % (42.0-52.0); Hemoglobin 16.0 g/dl (14.0-18.0); Imm Gran Abs Auto 0.03 X10*3/uL (0.00-0.03); Imm Gran Pct Auto 0.4 % (0.0-0.4); Lymphocytes Absolute Auto 1.8 X10*3/uL (1.2-4.9); Mean Corpuscular HGB Conc 34.0 g/dl (31.0-36.0); Mean Corpuscular Hemoglobin 30.8 pg (27.0-33.0); Mean Corpuscular Volume 90.8 fL (80.0-98.0); NRBC Abs Auto 0.000 X10*3/uL (0.0-0.012); NRBC Pct Auto 0.0 /100WBC (0.0-0.2); Platelet Count 191 X10*3/uL (160-400); Red Blood Count 5.19 X10*6/uL (4.60-5.80); White Blood Count 7.1 X10*3/uL (4.8-10.8)
[2025-06-28 12:16] LABS: Anion Gap 10 (12-20); Blood Urea Nitrogen 20 mg/dL (9-16); Calcium 9.8 mg/dL (8.4-10.2); Carbon Dioxide 27 mmol/L (22-29); Chloride 110 mmol/L (96-108); Cholesterol 197 mg/dL (<200); Estimated Glomerular Filt Rate > 60; HDL Cholesterol 53 mg/dL (>40); Potassium 4.2 mmol/L (3.3-5.1); Sodium 143 mmol/L (135-145); Triglycerides 175 mg/dL (<150)
[2025-06-28 12:26] LABS: Prostate Specific Antigen 2.63 ng/mL (<0.05-4.0)
== END 2025-06-28 10:01 | disposition home or self-care (01) ==
LOC: HO.LAB 10:00
PROVIDERS: PCP Physician Assistant; Visit Provider Physician Assistant
DX: I10 Essential (primary) hypertension (principal); E78.5 Hyperlipidemia, unspecified; M54.50 Low back pain, unspecified; G89.29 Other chronic pain; K75.81 Nonalcoholic steatohepatitis (NASH); Z79.891 Long term (current) use of opiate analgesic; Z12.5 Encounter for screening for malignant neoplasm of prostate; Z13.1 Encounter for screening for diabetes mellitus
CPT/HCPCS: 36415; 80048; 80061; 83036; 84153; 85025; 99202

== ENCOUNTER 2025-06-28 10:00 | Outpatient (AMB) | payer OTHER, SELFPAY ==
--- NOTE | 2025-06-28 09:34 | MHC.PC.OV ---
Vital Signs 06/28/25 10:06 06/28/25 10:29 Height 5 ft 5.91 in Weight 91.626 kg BMI 32.7 BP 146/74 H 130/76 Blood Pressure Location Lt brachial Position Sitting Respiration 18 Pulse 92 Pulse Source Pulse Oximeter Temp 98.8 F Temp Source Temporal Artery Scan Pulse Oximetry (%) 98 Oxygen Delivery Method Room Air Intake Visit Reasons: [employer]/Yvon - [employer] Att[employer] Required: No Accompanied by: Self / Same As Patient Allergies No Known Allergies Allergy (Verified 06/28/25 09:34) Medication List - Last Reconciled 06/28/25 by PRIMO Song amlodipine 5 mg PO BEDTIME lisinopril 40 mg PO DAILY tramadol 50 mg PO Q12H PRN ursodiol mg PO Tobacco use date assessed: 06/28/25 Fall risk assessment: No Falls in past year Last assessed Fall Risk: 06/28/25 Dental Screening Dental Screen Date: 06/28/25 Did you have a dental visit in the last 12 months?: No Did you have a dental problem in the last 6 months where you did not have access to dental care?: No Was dental information given to patient?: Patient has dentist HPI HPI Comments History of Present Illness Details 69-year-old male presenting to the office today with history of hypertension, hyperlipidemia, chronic low back pain, Ambrosio for management of chronic conditions and to establish care. He is a former Dr. Sanz patient. Last notes have been requested. Hypertension-initial 146/74, recheck 130/76. On amlodipine 5 mg and lisinopril 40 mg daily. Hyperlipidemia-due for lipid panel Chronic low back pain-reports history of lumbar fusion(?) Years ago. He believes this was done at [facility]. Previously has been participating intact she and receiving acupuncture which was helpful but then his provider retired. He is not interested in establishing with another provider. Currently using tramadol. Reports typically uses this only once daily but will take 2-3 for more severe pain. AMBROSIO- following with Dr. Stein q6m. Reviewed last liver elastography exam. He is taking ursodiol however no known history of cirrhosis. Will obtain GI notes Concerns: None Health maintenance: Last colonoscopy 01/2019, [address] Stein ROS: General: No fevers, malaise, unintentional weight loss HEENT: No blurred vision, diplopia. No sore throat, nasal congestion, rhinorrhea, sinus pain, ear pain Cardiovascular: No chest pain, palpitations, or leg edema Respiratory: No shortness of breath, wheezing, cough GI: No abdominal pain, nausea, vomiting, diarrhea, constipation, melena, hematochezia : No dysuria, hematuria, increased urinary frequency, decreased urinary output MSK: No myalgia, back pain Neuro: No headaches, weakness, paresthesias Skin: No rashes or lesions EXAM: Constitutional - Awake and Alert, No apparent distress Eyes - PERRL Cardiovascular - S1S2, RRR, No edema Respiratory - Normal lung expansion, Normal respiratory effort, No respiratory distress, CTA bilaterally Extremities - no calf tenderness bilaterally, no swelling Skin - Warm/Dry Neurological - Alert & oriented x3 Psychological - Appropriate affect [facility] Medical History (Updated 06/28/25 @ 10:25 by PRIMO Song) Chronic low back pain Screening for diabetes mellitus AMBROSIO (nonalcoholic steatohepatitis) HTN (hypertension) Surgical History (Updated 06/27/25 @ 16:12 by Venice Kang) History of colonoscopy (~02/01/19) Social History Housing: Apartment Patient Tobacco Use Status: Former Tobacco user e-Cigarette/Vaping Use: Never Used service: No Current occupational status: retired Questionnaire AUDIT C Alcohol Use Questionnaire (AUDIT-C) 1. How often do you have a drink containing alcohol?: Never 3. How often do you have six or more drinks on one occasion?: Never Total Score: 0 Physical exam (Primary Care) Vital Signs: Last Vital Signs Temp 98.8 F 06/28/25 10:06 Pulse 92 06/28/25 10:06 Resp 18 06/28/25 10:06 BP 130/76 06/28/25 10:29 Pulse Ox 98 06/28/25 10:06 Oxygen Delivery Method Room Air 06/28/25 10:06 BMI result Body Mass Index 32.7 Tobacco/Smoking Status: Tobacco use Status Tobacco use date assessed 06/28/25 06/28/25 09:35 Patient Tobacco Use Status Former Tobacco user 06/28/25 10:09 e-Cigarette/Vaping Use Never Used 06/28/25 10:09 Coding Level of Care Code New Pt Level 4 (40692) Complex EM visit Add On G2211 Diagnoses HTN (hypertension) I10 AMBROSIO (nonalcoholic steatohepatitis) K75.81 Chronic low back pain M54.50; G89.29 Assessment & Plan Assessment & Plan (1) HTN (hypertension): Code(s): I10 - Essential (primary) hypertension Category: Medical Plan: Controlled on recheck. Continue amlodipine and lisinopril. We will evaluate renal function and electrolyte levels today (2) AMBROSIO (nonalcoholic steatohepatitis): Code(s): K75.81 - Nonalcoholic steatohepatitis (AMBROSIO) Category: Medical Plan: Obtain notes from GI. Continue ursodiol as prescribed and follow up with GI as scheduled. Avoid hepatotoxins (3) Chronic low back pain: Code(s): M54.50 - Low back pain, unspecified; G89.29 - Other chronic pain Category: Medical Plan: Stable. We will request notes from Neurosurgery reportedly from [facility]. Continue tramadol as prescribed. I do recommend he reach out to another acupuncture provider as he did experience near-total relief with this. Weight loss efforts with regular exercise to help strengthen the paraspina muscles as well as to assist with weight loss. Plan Follow-up in the office in 6 months. Labs to be completed today Orders: Orders Basic Metabolic Panel Today G89.29 - Other chronic pain, I10 - Essential (primary) hypertension, K75.81 - Nonalcoholic steatohepatitis (AMBROSIO), M54.50 - Low back pain, unspecified, Z13.1 - Encounter for screening for diabetes mellitus Complete Blood Count Auto Diff Today G89.29 - Other chronic pain, I10 - Essential (primary) hypertension, K75.81 - Nonalcoholic steatohepatitis (AMBROSIO), M54.50 - Low back pain, unspecified, Z13.1 - Encounter for screening for diabetes mellitus Lipid Panel Today G89.29 - Other chronic pain, I10 - Essential (primary) hypertension, K75.81 - Nonalcoholic steatohepatitis (AMBROSIO), M54.50 - Low back pain, unspecified, Z13.1 - Encounter for screening for diabetes mellitus Hemoglobin A1c Today G89.29 - Other chronic pain, I10 - Essential (primary) hypertension, K75.81 - Nonalcoholic steatohepatitis (AMBROSIO), M54.50 - Low back pain, unspecified, Z13.1 - Encounter for screening for diabetes mellitus Prostate Specific Antigen Today G89.29 - Other chronic pain, I10 - Essential (primary) hypertension, K75.81 - Nonalcoholic steatohepatitis (AMBROSIO), M54.50 - Low back pain, unspecified, Z13.1 - Encounter for screening for diabetes mellitus
[2025-06-28 10:06] VITALS: BP 146/74; PULSE 92; RESP 18; TEMP 37.1; O2SAT 98; BMI 32.7
[2025-06-28 10:29] VITALS: BP 130/76
--- OUTSIDE RECORDS SUMMARY | 2025-06-28 11:58 | XMS_ITS | Encounter Summary ---
Author Organization [facility] Address [address] [place] [address] Phone Care Team Providers Care Duct Layer Helper Name Role Phone Rocael Sanz MD Primary Care Provider Encounter Details Date Type Department Care Team (Late st Contact Info) Description 07/16/2017 Transcribe Orders [facility] Laboratory [address] [place] [address] Rocael Sanz MD [address] [place] [address] Dr [facility]ZA [facility] [place] [address] Essential hypertension, benign (Primary Dx) Social History Tobacco Use Types Packs/Day Years Used Date Smoking Tobacco: Never Assessed Sex and Gender Information Value Date Recorded Sex Assigned at Male 06/06/2019 5:49 PM EDT Legal Sex Male 9:53 PM EDT Gender Identity Male 06/06/2019 5:49 PM EDT Sexual Orientation Straight 06/06/2019 5: 49 PM EDT documented as of this encounter Plan of Treatment Not on file documented as of this encounter Procedures Procedure Name Priority Date/Time Associated Diagnosis Comments CREATININE/EGFR Routine 07/16/2017 9:33 AM EST Essential hypertension, benign BUN Routine 07/16/2017 9:33 AM EST Essential hypertension, benign ELECTROLYTES Routine 07/16/2017 9:33 AM EST Essential hypertension, benign documented in this encounter Results * Creatinine/eGFR (07/16/2017 9:33 AM EST) CREATININE 0.90 0.5 - 1.5 mg/dL [facility] EGFR >60 60 - 1000 mL/min/1.7 3m2 [facility] Comment:Abnormal if <60. If patient is -Italian, multiply the result by 1.21. Blood 07/16/2017 9:33 AM EST 07/16/2017 9:39 AM EST Rocael Sanz MD LAB BLOOD ORDERABLES Final Result Performing Organization Address City/[facility]/ZIP Co de Phone Number [address] [address] * BUN (07/16/2017 9:33 AM EST) BUN 19 6 - 19 mg/dL [facility] Blood 07/16/2017 9:33 AM EST 07/16/2017 9:39 AM EST Rocael Sanz MD LAB BLOOD ORDERABLES Final Result Performing Organization Address [facility] Co de Phone Number [address] [address] * Electrolytes (07/16/2017 9:33 AM EST) SODIUM 145 133 - 146 mmol/L [facility] POTASSIUM 4.0 3.3 - 5.1 mmol/L [facility] CHLORIDE 107 96 - 108 mmol/L [facility] CO2 28 21 - 35 mmol/L [facility] ANION GAP 14 10 - 20 mmol/L [facility] Blood 07/16/2017 9:33 AM EST 07/16/2017 9:39 AM EST Rocael Sanz MD LAB BLOOD ORDERABLES Final Result Performing Organization Address City/[facility]/ZIP Co de Phone Number [address] [address] documented in this encounter Visit Diagnoses Diagnosis Essential hypertension, benign- Primary documented in this encounter Care Teams Duct Layer Helper Relationship Specialty Start Date End Date Rocael Sanz MD [address] [place] [address] Dr LEYVA, JENNIFER [id number] PCP - General Internal Medicine 07/16/17 documented as of this encounter Additional Source Comments The information contained in this document represents components of the legal health record. It is not the complete legal health record.[facility]
--- OUTSIDE RECORDS SUMMARY | 2025-06-28 11:58 | XMS_ITS | Encounter Summary ---
Author Organization [facility] Address [address] [place] [address] Care Team Providers Care Library Circulation Clerk Name Role Phone Unavailable Primary Care Provider Unavailabl e Encounter Details Date Type Department Care Team (Latest Contact Info) Description 04/22/2019 Abstract [facility] CONVERSIONS Dental, Provider, DDS Social History Tobacco [...] on file documented as of this encounter Visit Diagnoses Not on filedocumented in this encounter
--- OUTSIDE RECORDS SUMMARY | 2025-06-28 11:58 | XMS_ITS | Clinical Summary ---
Author Organization [facility] Address [address] [place] [address] Care Team Providers Care Polyethylene Combiner Name Role Phone Unavailable Primary Care Provider [...] 5 mg by mouth at bedtime. Active Active Problems No known active problems Social History Tobacco Use Types Packs/Day Years [...] Sign Reading Time Taken Comments Blood Pressure 128/80 01/14/2025 1:22 PM EDT Pulse 69 01/14/2025 1:22 PM EDT Temperature - - Respiratory Rate - - Oxygen Saturation - - Inhaled Oxygen Concentration - - Weight - - Height - - Body Mass Index - - Plan of Treatment Health Maintenance Due Date Last Done Comments [...] - Risk 60-74 years 1-dose series) 2016 COVID-19 Vaccine ( season) 2025 05/13/2024, 08/06/2023, 07/23/2022, Additional history exists Influenza Vaccine (#1) 2025 , 06/04/2023, 06/03/2022, Additional history exists Dental Oral Exam 06/02/2025 11/30/2024, 12/12/2022 Dental Prophylaxis 06/02/2025 11/30/2024 Dental X-Ray: Bitewings 12/01/2025 12/01/19, 06/01/2024, 05/28/2024, Additional history exists Dental X-Ray: Full Mouth 12/13/2025 12/12/2022 Tobacco Screening 01/14/2026 01/14/2025 DTaP/Tdap/Td Vaccines (2 - Td or Tdap) 11/11/2034 11/11/2024 Pneumococcal Vaccine: 50+ Years Completed 06/03/2022 Zoster Vaccines Completed 02/02/2024, 08/06/2023 HIB Vaccines Aged Out No longer eligi ble based on patient's age to complete this topic HPV Vaccines Aged Out No longer eligi ble based on patient's age to complete this topic IPV Vaccines Aged Out No longer eligi ble based on patient's age to complete this topic Meningococcal B Vaccine Aged Out No l onger eligible based on patient's age to complete [...] Procedure Name Priority Date/Time Associated Diagnosis Comments PROPHYLAXIS - ADULT Routine 11/30/2024 1 1:00 AM EDT Periodontal disease Dental calculus BITEWINGS - 4 RADIOGRAPHIC IMAGES Routine 11/30/2024 11:00 AM EDT Periodontal disease Dental calculus PERIODIC ORAL EVALUATION - ESTABLISHED PATIENT Routine 11/30/2024 11:00 AM EDT INTRAORAL - COMPLETE SERIES OF RADIOGRAPHIC IMAGES Routine 12/12/2022 2:00 PM EDT from Last 3 Months or Most Recently Relevant to Health Maintenance Insurance D[facility]AL - [facility]
--- OUTSIDE RECORDS SUMMARY | 2025-06-28 11:58 | XMS_ITS | Encounter Summary ---
Author Organization [facility] Address [address] [place] [address] Phone Care Team Providers Care Dish Carrier Name Role Phone Rocael Sanz MD Primary Care Provider Encounter Details Date Type Department Care Team (Late st Contact Info) Description 10/05/2020 Transcribe Orders Virtual Department [address] [place] [address] Rocael Sanz MD [address] [place] [address] Dr [facility]ZA [facility] [place] [address] Travel within last 14 days (Primary Dx) Social History Tobacco Use Types Packs/Day Years Used Date Smoking Tobacco: Never Smokeless Tobacco: Never Alcohol Use Standard Drinks/Week Comments Never 0 [...] on file documented as of this encounter Results * COVID-19 PCR Order (10/06/2020 8:05 AM EST) COVID Testing Status Specimen received in analyzing lab. Results should be available within 24 to 48 hrs. [facility] Symptomatic? NO [facility] 10/06/2020 8:05 AM EST 10/06/2020 4:37 PM EST us Rocael Sanz MD BODY FLUIDS AND STOOLS NITISH [place]S Final Result [facility] [address] [place] [address] [facility] [address] [place] [address] documented in this encounter Visit Diagnoses Diagnosis Travel within last 14 days- Primary documented in this encounter Care Teams Dish Carrier Relationship Specialty Start Date End Date Rocael Sanz MD [address] [place] [address] [place] [address] PCP - General Internal Medicine 07/16/17 documented as of this encounter Additional Source Comments The information contained in this document represents components of the legal health record. It is not the complete legal health record.[facility]
--- OUTSIDE RECORDS SUMMARY | 2025-06-28 11:58 | XMS_ITS | Encounter Summary ---
Author Organization [facility] Address [address] [place] [address] Phone Care Team Providers Care Assistant Grocery Name Role Phone Rocael Sanz MD Primary Care Provider Encounter Details Date Type Department Care Team (Late st Contact Info) Description 04/01/2018 Transcribe Orders [facility] [address] [place] [address] Rocael Sanz MD [address] [place] [address] [place] [address] Routine medical exam (Primary Dx) Social History Tobacco Use Types [...] documented as of this encounter Results * Glucose, fasting (04/01/2018 8:57 AM EDT) FASTING GLUCOSE 102 70 - 110 mg/dL [facility] Blood 04/01/2018 8:57 AM EDT 04/01/2018 9:01 AM EDT us Rocael Sanz MD LAB BLOOD ORDERABLES Final Result [address] [address] * Creatinine/eGFR (04/01/2018 8:57 AM EDT) CREATININE 1.00 0.5 - 1.5 mg/dL [facility] EGFR 81 >59 mL/min/1.7 3m2 [facility] Comment:If patient is black, multiply result by 1.159. Estimated glomerular filtration rate calculated using the CKD-EPI equation. Blood 04/01/2018 8:57 AM EDT 04/01/2018 9:01 AM EDT Rocael Sanz MD LAB BLOOD ORDERABLES Final Result [address] [address] * (ABNORMAL) BUN (04/01/2018 8:57 AM EDT) BUN 24(H) 6 - 19 mg/dL [facility] Blood 04/01/2018 8:57 AM EDT 04/01/2018 9:01 AM EDT Rocael Sanz MD LAB BLOOD ORDERABLES Final Result [address] [address] * Electrolytes (04/01/2018 8:57 AM EDT) SODIUM 144 133 - 146 mmol/L [facility] POTASSIUM 4.4 3.3 - 5.1 mmol/L [facility] CHLORIDE 106 96 - 108 mmol/L [facility] CO2 25 21 - 35 mmol/L [facility] ANION GAP 17 10 - 20 mmol/L [facility] Blood 04/01/2018 8:57 AM EDT 04/01/2018 9:01 AM EDT us Rocael Sanz MD LAB BLOOD ORDERABLES Final Result [facility] [address] [place] [address] documented in this encounter Visit Diagnoses Diagnosis Routine medical exam- Primary Routine general medical examination at a health care facility documented in this encounter Care Teams Assistant Grocery Relationship Specialty Start Date End Date Rocael Sanz MD [address] [place] [address] Dr BASHIR [address] [place] [id number] PCP - General Internal Medicine 07/16/17 documented as of this encounter Additional Source Comments The information contained in this document represents components of the legal health record. It is not the complete legal health record.[facility]
--- OUTSIDE RECORDS SUMMARY | 2025-06-28 11:59 | XMS_ITS | Clinical Summary ---
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 Active amoxicillin-cla vulanate (AUGMENTIN) 875-125 mg per tablet Take 1 tablet (875 mg of amoxicillin total) by mouth 2 (two) times a day. 13 tablet 9 Active Additional Information Patient not taking.Reported on 01/02/2020 morphine (MSIR) 15 MG tablet Take 1-2 tablets (15-30 mg total) by mouth every 6 (six) hours as needed for pain (specific location in comments). Partial fill ok 12 tablet 9 Active Additional Information Patient not taking.Reported on 01/02/2020 Encounters Date Type Department Care Team Description 04/22/2025 12:13 PM EDT - 04/22/2025 1:06 PM EDT Emergency [facility] [address] [place] [address] Discharge Disposition: Home or Self Care from Last 3 Months Social History Tobacco Use Types Packs/Day Years Used Date Smoking Tobacco: Never Smokeless Tobacco: Never Alcohol Use Standard Drinks/Week Comments Never 0 (1 standard drink = 0.6 oz pur e alcohol) Education Answer Date Recorded Are you interested in more education? Not on gage e 12/27/2022 Are you concerned about learning? Not on file 12/27/2022 No 12/27/2022 No 12/27/2022 Digital Access Answer Date Recorded No 01/27/2023 No 01/27/2023 No 01/27/2023 Reliable internet access at home? Not on file 01/27/2023 Device with a working camera? Not on file Intimate Partner Violence Answer Date R ecorded Are you denied basic needs s uch as food, clothing, or medical care? No 04/22/2025 In the past 12 months have y ou been in a relationship with a person who hurts, threatens, or tries to control you? No 04/22/2025 Are you denied basic needs s uch as food, clothing, or medical care? No 04/22/2025 In the past 12 months have y ou been in a relationship with a person who hurts, threatens, or tries to control you? No 04/22/2025 Sex and Gender Information Value Date Recorded Sex Assigned at Male 06/06/2019 5:49 PM EDT Legal Sex Male 9:53 PM EDT Gender Identity Male 06/06/2019 5:49 PM EDT Sexual Orientation Straight 06/06/2019 5: 49 PM EDT Last Filed Vital Signs Vital Sign Reading Time Taken Comments Blood Pressure 159/88 04/22/2025 1:03 PM EDT Pulse 63 04/22/2025 1:03 PM EDT Temperature 36.5 C (97.7 F) 04/22/2025 1:03 PM EDT Respiratory Rate 18 04/22/2025 1:03 PM EDT Oxygen Saturation 97% 04/22/2025 1:03 PM EDT Inhaled Oxygen Concentration - - Weight 90.7 kg (200 lb) 04/22/2025 10:28 AM EDT Height 167.6 cm (5' 6 ) 04/22/2025 10:28 AM EDT Body Mass Index 32.28 04/22/2025 10:28 AM EDT Plan of Treatment Health Maintenance Due Date Last Done Comments Adult Td,Tdap Booster 1956 BLOOD PRESSURE 1956 LIPID PANEL 1956 DEPRESSION SCREENING 1968 COLOGUARD 2001 COLONOSCOPY 2001 COLORECTAL CANCER SCREENING 2001 FIT TEST 2001 FOBT 2001 SIGMOIDOSCOPY 2001 VIRTUAL COLONOSCOPY 2001 PNEUMOCOCCAL VACCINES (50+ years) (1 of 1 - PCV) 2006 ZOSTER VACCINES (1 of 2) 2006 INFLUENZA VACCINE (#1) 2025 0, 06/11/2019, 05/27/2018, Additional history exists COVID-19 VACCINE ( - season) 2025 01/17/2021, 12/20/2020 CREATININE LEVEL 01/25/2026 01/25/2025, , 09/22/2023, Additional history exists POTASSIUM LEVEL 01/25/2026 01/25/2025, 07/03, 01/19/2024, Additional history exists SCREENING FOR DIABETES 01/26/2028 , 09/22/2023, 09/21/2019 RSV VACCINE (1 - 1-dose 75+ series) 12/19/2031 SMOKING STATUS SCREENING (Once After 26 Yrs) Completed 01/02/2020 HEPATITIS C SCREENING Completed 04/07/2020, 020 HEPATITIS A VACCINES Aged Out No long er eligible based on patient's age to complete this topic HIB VACCINES Aged Out No longer eligi ble based on patient's age to complete this topic MENINGOCOCCAL VACCINES (ACWY) Aged Out No longer eligible based on patient's age to complete this topic MENINGOCOCCAL VACCINES (B) Aged Out N o longer eligible based on patient's age to complete this topic Medical Devices Not on file Procedures Procedure Name Priority Date/Time Associated Diagnosis Comments COMPREHENSIVE METABOLIC PANEL Routine 01/25/2025 7:05 AM EDT Secondary hypertension GLUCOSE Routine 09/22/2023 8:27 AM EST Secondary hypertension GRECO (nonalcoholic steatohepatitis) Type 2 diabetes mellitus without complication, unspecified whether residential insulin use LIVER FIBROSIS TEST Routine 04/07/2020 9 :12 AM EDT Hypertension, unspecified type from Last 3 Months or Most Recently Relevant to Health Maintenance Results * (ABNORMAL) Comprehensive metabolic panel (01/25/2025 7:05 AM EDT) SODIUM 139 133 - 146 mmol/L [facility] POTASSIUM 3.9 3.3 - 5.1 mmol/L [facility] CHLORIDE 103 96 - 108 mmol/L [facility] CO2 25 21 - 35 mmol/L [facility] BUN 25(H) 6 - 19 mg/dL [facility] CREATININE 1.00 0.5 - 1.5 mg/dL [facility] GLUCOSE 104(H) 70 - 99 mg/dL [facility] ALBUMIN 4.2 3.9 - 4.8 g/dL [facility] TOTAL PROTEIN 7.4 6.5 - 8.0 g/dL [facility] CALCIUM 9.7 8.4 - 10.3 mg/dL [facility] ALKALINE PHOSPHATASE 76 39 - 117 U/L [facility] TOTAL BILIRUBIN 0.4 0.0 - 1.2 mg/dL [facility] AST 25 0 - 37 U/L [facility] ALT 17 0 - 40 U/L [facility] GLOBULIN 3.2 1 - 4.8 g/dL [facility] EGFR 82 >59 mL/min/1.7 3m2 [facility] Comment:Estimated glomerular filtration rate calculated using the CKD-EPI refit equation. ANION GAP 15 10 - 20 mmol/L [facility] Blood 01/25/2025 7:05 AM EDT 01/25/2025 7:15 AM EDT Rocael Sanz MD LAB BLOOD ORDERABLES Final Result [address] [id number] * (ABNORMAL) Glucose (09/22/2023 8:27 AM EST) GLUCOSE 111(H) 70 - 99 mg/dL [facility] Blood 09/22/2023 8:27 AM EST 09/22/2023 8:31 AM EST Rocael Sanz MD LAB BLOOD ORDERABLES Final Result [facility] [address] [place] [address] * (ABNORMAL) Liver fibrosis test (04/07/2020 9:12 AM EDT) Fibrosis score 0.48 [facility] Interpretation (Fibrosis) SEE NOTE [facility] Comment: (NOTE) moderate fibrosis Fibro Test Score (f) Metavir Score f>=0 and f<=0.21 : F0 (no fibrosis) f>0.21 and f<=0.27 : F0-F1 (no fibrosis) f>0.27 and f<=0.31 : F1 (minimal fibrosis) f>0.31 and f<=0.48 : F1-F2 (minimal fibrosis) f>0.48 and f<=0.58 : F2 (moderate fibrosis) f>0.58 and f<=0.72 : F3 (advanced fibrosis) f>0.72 and f<=0.74 : F3-F4 (advanced fibrosis) f>0.74 and f<=1.00 : F4 (severe fibrosis) HCV Fibrosis Grade F2 Q [facility] NECROINFLAMM SCORE 0.64 Q [facility] NECROINFLAMM GRADE A3 Q [facility] NECROINFLAMM INTERP SEE NOTE [facility]/ [facility] Comment: (NOTE) severe activity ActiTest Score (a) Metavir Score a>=0 and a<=0.17 : A0 (no activity) a>0.17 and a<=0.29 : A0-A1 (no activity) a>0.29 and a<=0.36 : A1 (minimal activity) a>0.36 and a<=0.52 : A1-A2 (minimal activity) a>0.52 and a<=0.60 : A2 (significant activity) a>0.60 and a<=0.62 : A2-A3 (significant activity) a>0.62 and a<=1.00 : A3 (severe activity) A2 Macroglobulin 238 106 - 279 mg/dL [facility] Haptoglobin 56 43 - 212 mg/dL [facility] Apolipoprotein A1 149 94 - 176 mg/dL [facility] TOTAL BILIRUBIN 0.4 0.2 - 1.2 mg/dL [facility] GGT 44 3 - 70 U/L [facility] ALT 102(H) 9 - 46 U/L [facility] Specimen/Product ID [id number] [facility] Comments (Chemistry) SEE NOTE [facility] Comment: (NOTE) The reliability of results is dependent on compliance with the preanalytical and analytical conditions recommended by [employer]. The tests have to be deferred for: acute hemolysis, acute hepatitis, acute inflammation, extra hepatic cholestasis. The advice of a specialist should be sought for interpretation in chronic hemolysis and Gilbert's syndrome. The test interpretation is not validated in liver transplant patients. Isolated extreme values of one of the components should lead to caution in interpreting the results. In case of discordance between a biopsy result and a test, it is recommended to seek the advice of a specialist. The causes of these discordances could be due to a flaw of the test or to a flaw in the biopsy: i.e. a liver biopsy has a 33% variability rate for one fibrosis stage. FibroTest is interpretable for chronic hepatitis B and C, alcoholic and non alcoholic steatosis. ActiTest is interpretable for chronic hepatitis B and C. The performance characteristics have been determined by [facility]. It has not been cleared or approved by the U.S. Food and Drug Administration. Performance characteristics refer to the analytical performance of the test. [employer], the associated logo, [employer] and all associated [employer] melo are the registered trademarks of [employer]. All third alliance party melo - (R) and (TM) - are the property of their respective owners. (C) [id number] [employer]. All rights reserved. Blood 04/07/2020 9:12 AM EDT 04/07/2020 9:15 AM EDT us Rocael Sanz MD LAB BLOOD ORDERABLES Final Result [facility] [address] [place] [address], [facility] from Last 3 Months or Most Recently Relevant to Health Maintenance Insurance MEDICARE PART A & B MEDICARE REPLACEMENT MEDICARE PART A & B [id number] [place] [address] MEDICARE REPLACEMENT MEDICARE PART A & B Member Subscriber Plan / Payer (Ef fective 1995-Present) Name:Damien Mackey Member ID:[id number] Relation to Subscriber:Self Name:Damien Mackey Subscriber ID:[id number] Payer ID:[id number] Group ID:Not on file Type:Medicare Address: [facility] [address] [facility] MEDICARE REPLACEMENT [place] [id number] [facility]ICARE PART A & B [facility] RE[facility] MEDICARE PART A & B MEDICARE REPLACEMENT MEDICARE PART A & B MEDICARE REPLACEMENT PRIMO DUARTE [facility] MEDICARE PART A & B MEDICARE REPLACEMENT Member Subscriber Plan / Payer (Ef fective 2021-Present) Name:Damien Mackey Relation to Subscriber:Self Name:Damien Mackey Payer ID:[id number] (NAIC) Group ID:[id number] Type:Medicare [address] [facility] MEDICARE PART A & B [id number] [place] [address] MEDICARE REPLACEMENT MEDICARE PART A & B Member Subscriber Plan / Payer (Ef fective 1995-Present) Name:Talat Mackeysus Member ID:[id number] Relation to Subscriber:Self Name:Damien Mackey Subscriber ID:[id number] Payer ID:[id number] Group ID:Not on file Type:Medicare Address: [employer] [address] [place] [id number] [place] [address] MEDICARE REPLACEMENT [place] DUARTE [id number] Care Teams Tarring Machine Operator Relationship Specialty Start Date End Date Rocael Sanz MD [address] [place] [address] [place] [address] PCP - General Internal Medicine 07/16/17 Additional Source Comments The information contained in this document represents components of the legal health record. It is not the complete legal health record.[facility]
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
== END 2025-06-28 10:36 | disposition home or self-care (01) ==
PROVIDERS: PCP Physician Assistant; Visit Provider Physician Assistant
DX: I10 Essential (primary) hypertension (principal); K75.81 Nonalcoholic steatohepatitis (NASH); M54.50 Low back pain, unspecified; G89.29 Other chronic pain